=== PATIENT | female | born 1995 | race African-American/Black ===

== ENCOUNTER 2021-10-08 01:19 | Emergency (ER) | payer BC ==
[~2021-10-08] VITALS: Ht 162.6 cm; Wt 64.5 kg
[2021-10-08] MEDS ORDERED: MethylPREDNISolone SOD SUCC 125 MG/2 ML VIAL IM ONE (01:30)
[2021-10-08] MEDS ORDERED: DiphenhydrAMINE HCL 50 MG/ML VIAL IM ONE (01:30)
[2021-10-08 01:57] VITALS: BP 141/96
[2021-10-08] MEDS ORDERED: DIPH25CA53 PO (02:18)
[2021-10-08] MEDS ORDERED: PRED-554 PO (02:18)
== END 2021-10-08 02:31 | disposition home or self-care (01) ==
LOC: EMS 01:21
DX: L50.9 Urticaria, unspecified (principal)
CPT/HCPCS: 96372; 99284; J1200; J2930